=== PATIENT | female | born 1970 | race Caucasian/White ===

== ENCOUNTER → 2025-02-13 15:56 | Outpatient (REF) | payer OTHER, SELFPAY | LOC: HWRAD 15:56 | PROVIDERS: ATTENDING PHYSICIAN Family Medicine | DX: M54.2 Cervicalgia (principal); F41.9 Anxiety disorder, unspecified; E04.1 Nontoxic single thyroid nodule; D36.9 Benign neoplasm, unspecified site | CPT/HCPCS: 72052 ==